=== PATIENT | female | born 1950 | race Two or more races ===

== ENCOUNTER 2019-12-29 18:28 | Outpatient (CLI) | payer OTHER ==
[~2019-12-29 18:28] MED LIST: METFORMIN HYDRO25 GM
== END 2019-12-29 18:40 | disposition home or self-care (01) ==
LOC: LAB 18:28
PROVIDERS: ATTEND Ophthalmology
DX: H44.19 Other endophthalmitis (principal)

== ENCOUNTER 2020-01-12 17:37 | Emergency (ER) | payer OTHER ==
[~2020-01-12] VITALS: Ht 157.5 cm; Wt 57.6 kg
[2020-01-12] MEDS ORDERED: MECLIZINE HCL25 M1 PO (20:52)
== END 2020-01-12 21:17 | disposition home or self-care (01) ==
LOC: ER 17:37
DX: R42 Dizziness and giddiness (principal); Z20.828 Contact with and (suspected) exposure to other viral communicable diseases

== ENCOUNTER 2020-07-11 16:15 | Emergency (ER) | payer OTHER ==
[~2020-07-11] VITALS: Ht 165.1 cm; Wt 54.0 kg
[~2020-07-11 16:15] MED LIST changes: +MECLIZINE HCL25 M1 PO
[2020-07-11] MEDS ORDERED: GLIMEPIRIDE1 M1 PO (17:10)
[2020-07-11] MEDS ORDERED: METFORMIN HCL500 M4 PO (17:11)
== END 2020-07-11 17:45 | disposition home or self-care (01) ==
LOC: ER 16:15
DX: E11.65 Type 2 diabetes mellitus with hyperglycemia (principal)